=== PATIENT | male | born 1955 | race African-American/Black ===

== ENCOUNTER 2020-09-17 22:40 | Observation (INO) ==
[2020-09-17 23:12] LABS: ABS Monocytes 0.4 10^3/ul (0-0.8); ABS Neutrophils 2.7 10^3/ul (1.5-7.7); Eosinophil % 0.8 %; Hematocrit 41 % (42-52); Hemoglobin 13.9 g/dL (14.0-18.0); Lymphocyte % 24.1 %; Mean Corpuscular HGB Conc 34 g/dL (31-36); Mean Corpuscular Hemoglobin 31 pg (27-31); Mean Corpuscular Volume 92 fL (80-94); Mean Platelet Volume 7.7 fL (7.4-10.4); Nucleated Red Blood Cells % 0.1; Platelet Count 231 10^3/uL (150-450); Red Blood Count 4.44 10^6 /uL (4.18-5.48); Red Cell Distribution Width 13 % (10-15); White Blood Count 4.1 10^3/uL (3.5-10.8)
[2020-09-17 23:18] LABS: INR 1.09 (0.82-1.09)
[2020-09-17 23:30] LABS: Albumin 4.4 g/dL (3.2-5.2); Albumin/Globulin Ratio 1.7 (1-3); Calcium 9.5 mg/dL (8.6-10.3); EGFR African American 91.3 (>60); EGFR Non-African American 75.5 (>60); Globulin 2.6 g/dL (2-4); Potassium 3.4 mmol/L (3.5-5.0); Total Bilirubin 0.5 mg/dL (0.2-1.0)
[2020-09-18] MEDS ORDERED: Potassium Chlor 20 meq TAB.ER PO ONE ×2 (02:16→05:27)
[2020-09-18] MEDS ORDERED: Enoxaparin 40 MG/0.4 ML SYR SUBCUT SCH (03:00)
[2020-09-18] MEDS ORDERED: Enoxaparin 40 MG/0.4 ML SYR ONE (03:26)
[2020-09-18 03:37] LABS: HDL Cholesterol 79.2 mg/dL
[2020-09-18 04:31] LABS: ABS Lymphocytes 1.3 10^3/ul (1.0-4.8); ABS Monocytes 0.5 10^3/ul (0-0.8); ABS Neutrophils 2.8 10^3/ul (1.5-7.7); Eosinophil % 0.8 %; Hematocrit 43 % (42-52); Hemoglobin 14.6 g/dL (14.0-18.0); Lymphocyte % 28.6 %; Mean Corpuscular HGB Conc 34 g/dL (31-36); Mean Corpuscular Hemoglobin 31 pg (27-31); Mean Corpuscular Volume 93 fL (80-94); Mean Platelet Volume 7.8 fL (7.4-10.4); Platelet Count 230 10^3/uL (150-450); Red Blood Count 4.67 10^6 /uL (4.18-5.48); Red Cell Distribution Width 13 % (10-15); White Blood Count 4.6 10^3/uL (3.5-10.8)
[2020-09-18 04:53] LABS: BUN/Creatinine Ratio 13.3 (8-20); Calcium 9.5 mg/dL (8.6-10.3); EGFR African American 93.5 (>60); EGFR Non-African American 77.2 (>60); Potassium 3.6 mmol/L (3.5-5.0)
[2020-09-18 06:01] LABS: Hepatitis C Antibody Negative (Negative)
[2020-09-18] MEDS ORDERED: Influenza VAC *QUAD* 2020-21* 0.5 ML SYRINGE IM ONE (09:00)
[2020-09-18 09:16] LABS: HIV 4th Generation Nonreactive (Nonreactive)
[2020-09-18 12:48] VITALS: BP 127/78
== END 2020-09-18 15:00 | disposition home or self-care (01) ==
LOC: ED 22:40 → MEDTELE 22:40
PROVIDERS: ADMIT Internal Medicine; ATTEND Internal Medicine